=== PATIENT | female | born 1970 ===

== ENCOUNTER → 2016-07-11 17:15 | Outpatient (CLI) | payer OTHER ==
[2015-04-25 06:55] VITALS: BMI 28.1
[~2016-07-11 17:15] MED LIST: ENULOSE10 G/15 ML PO; HYDROCHLOROTH12.5 M1 PO; HYDROCHLOROTHIA25 MG PO; LEVSIN/ANASP0.125 MG PO; PROAIR HFA8.5 GM INH; TOPAMAX50 MG PO; VITAMIN B-121000 MCG PO; XANAX2 MG PO; ZOLOFT50 MG PO; ZYRTEC10 MG PO
== END | disposition home or self-care (01) ==
LOC: D.LABREF 17:15
DX: N39.0 Urinary tract infection, site not specified (principal)

== ENCOUNTER → 2016-08-13 18:06 | Outpatient (CLI) | payer OTHER ==
[2015-04-25 06:55] VITALS: BMI 28.1
[2016-08-13 18:23] LABS: AMYLASE - SERUM 36 U/L (25-115); LIPASE 131 U/L (73-393)
== END | disposition home or self-care (01) ==
LOC: D.LABREF 18:06
PROVIDERS: Family Medicine
DX: R10.11 Right upper quadrant pain (principal); R10.13 Epigastric pain; R10.12 Left upper quadrant pain

== ENCOUNTER 2016-08-22 17:06 | Observation (INO) | payer OTHER ==
[2015-04-25 06:55] VITALS: BMI 28.1
[~2016-08-22 17:06] MED LIST changes: -ENULOSE10 G/15 ML PO; -HYDROCHLOROTH12.5 M1 PO; -LEVSIN/ANASP0.125 MG PO; -TOPAMAX50 MG PO; -XANAX2 MG PO
[2016-08-22 19:08] LABS: BASOPHILS 0.2 % (0.0-2.0); EOSINOPHILS 0.6 % (0-7); HEMATOCRIT 39.8 % (36.0-48.0); HEMOGLOBIN 13.5 g/dL (12-16); IMMATURE GRANULOCYTES 0.2 % (0-5); MCHC 33.9 g/dL (31.0-37.0); MCV 91.5 fL (80.0-100.0); MEAN PLATELET VOLUME 10.2 fL (7.4-10.4); MONOCYTES 7.3 % (2-11); NEUTROPHILS 54.7 % (40-80); PLATELET COUNT 165 10x3/uL (130-400); RBC 4.35 10x6/uL (4.00-5.40); RDW 13.5 % (11.5-14.5); WBC 8.7 10x3/uL (4.8-10.8)
[2016-08-22 19:22] LABS: ALKALINE PHOSPHATASE 51 U/L (46-116); ALT (SGPT) 67 U/L (10-68); BILIRUBIN - TOTAL 0.28 mg/dL (0.2-1.3); CALC OSMOLALITY 279 mosm/kg (275-300); CALCIUM 8.8 mg/dL (8.5-10.1); CARBON DIOXIDE 25.5 mmol/L (21.0-32.0); CHLORIDE - SERUM 106 mmol/L (98-107); CREATININE - SERUM 0.8 mg/dL (0.6-1.3); GLUCOSE 98 mg/dL (74-106); PROTEIN - SERUM 6.9 g/dL (6.4-8.2); SODIUM 141 mmol/L (136-145); UREA NITROGEN 11 mg/dL (7-18); eGFR NON AFRICAN AMERICAN 82 mL/min (90-120)
--- NOTE | 2016-08-22 19:32 | NUR ---
PT RECIEVED TO ROOM 20 GA IV SITED TO RFA X 1 STICK
[2016-08-22] MEDS ORDERED: HYDROCHLOROTH12.5 M1 PO (19:58)
[2016-08-22] MEDS ORDERED: XANAX2 MG PO (20:00)
[2016-08-22] MEDS ORDERED: ENULOSE10 G/15 ML PO (20:02)
--- NOTE | 2016-08-22 20:47 | NUR ---
IV FLUIDS STARTED PER MAR, TOMAS WELL, CL IN REACH
--- NOTE | 2016-08-22 22:34 | NUR ---
XANAX GIVEN PER MAR FOR SLEEP, TOMAS WELL, CL IN REACH
[2016-08-23 04:00] VITALS: BP 126/75
[2016-08-23 05:41] LABS: BASOPHILS 0.3 % (0.0-2.0); EOSINOPHILS 1.2 % (0-7); HEMATOCRIT 40.1 % (36.0-48.0); HEMOGLOBIN 13.2 g/dL (12-16); IMMATURE GRANULOCYTES 0.5 % (0-5); MCH 30.4 pg (26.0-34.0); MCHC 32.9 g/dL (31.0-37.0); MCV 92.4 fL (80.0-100.0); MEAN PLATELET VOLUME 10.5 fL (7.4-10.4); MONOCYTES 9.1 % (2-11); NEUTROPHILS 43.9 % (40-80); PLATELET COUNT 154 10x3/uL (130-400); RBC 4.34 10x6/uL (4.00-5.40); RDW 13.6 % (11.5-14.5); WBC 7.8 10x3/uL (4.8-10.8)
[2016-08-23 06:17] LABS: ALBUMIN 3.5 g/dL (3.4-5.0); ALKALINE PHOSPHATASE 49 U/L (46-116); ALT (SGPT) 70 U/L (10-68); CALC OSMOLALITY 267 mosm/kg (275-300); CALCIUM 8.6 mg/dL (8.5-10.1); CARBON DIOXIDE 26.7 mmol/L (21.0-32.0); CHLORIDE - SERUM 100 mmol/L (98-107); CREATININE - SERUM 0.8 mg/dL (0.6-1.3); GLUCOSE 109 mg/dL (74-106); PROTEIN - SERUM 6.3 g/dL (6.4-8.2); SODIUM 134 mmol/L (136-145); UREA NITROGEN 10 mg/dL (7-18); eGFR NON AFRICAN AMERICAN 82 mL/min (90-120)
--- NOTE | 2016-08-23 07:00 | NUR ---
REPORT RECIEVED ASSUMED CARE. PATIENT IN BED WITH IV INTACT. NO COMPLAINTS AT THIS TIME. CALL LIGHT WITHIN REACH.
--- NOTE | 2016-08-23 08:00 | NUR ---
ASSESSMENT COMPLETE, VS STABLE. NO COMPLAINTS AT THIS TIME. CALL LIGHT WITHIN REACH.
[2016-08-23] MEDS ORDERED: TOPAMAX50 MG PO (08:16)
[2016-08-23] MEDS ORDERED: LEVSIN/ANASP0.125 MG PO (08:22)
[2016-08-23 10:36] VITALS: BP 118/75
--- NOTE | 2016-08-23 11:00 | NUR ---
PATIENT IV REMOVED WITH CATH TIP INTACT. NO COMPLAINTS. CALL LIGHT WITHIN REACH.
[2016-08-23 11:32] VITALS: BP 135/96
--- NOTE | 2016-08-23 11:40 | NUR ---
PATIENT RECIEVED DC INSTRUCTIONS. VERBALIZED UNDERSTANDING. FAMILY AT BEDSIDE. CALL LIGHT WITHIN REACH.
--- NOTE | 2016-09-26 09:40 | CN ---
PATIENT NAME:AMIE MEADOWS MEDICAL RECORD: [id number] : 70 LOCATION:[id number] ADMIT DATE: 08/22/16 ACCOUNT: [id number] CONSULTING PHYSICIAN: VICTOR M FERRARA MD REFERRING PHYSICIAN: BOZENA TEAGUE DO DATE OF CONSULTATION: 08/22/2016 Consultation Note Addendum HISTORY OF PRESENT ILLNESS: I was asked to see the patient due to abdominal pain as well as facial numbness. Her abdominal pain has been going on for some time now. She has undergone workup by Dr. Wills at [facility]. This has included an EGD and colonoscopy. She states that she was identified as having duodenitis and gastritis. Most of her pain is in the right upper quadrant and the right lateral chest wall. Also, some pain in the right lower quadrant. She has undergone a CT scan. I personally reviewed the CT images. The radiologist has read the report yet. I note no significant abnormality on to the CT of the abdomen and pelvis. The patient has undergone a prior cholecystectomy. This was performed by Dr. Freedman. As she already has a relationship with Dr. Freedman and states she would like to have Dr. Freedman take care of her during this hospitalization. She states that she will stay with me for now. This is Dr. Teague's patient. I asked her some questions about gluten sensitivity. We also talked about the facial numbness, which I think is unrelated to her abdominal complaints. It is mainly left perioral numbness. This may be a variant of migraine. She is also going through menopause which may be aggravating things as well. I think that some of her abdominal symptoms are related to irritable bowel syndrome. She does have bloating. She does have nausea. She does have alternating constipation, diarrhea, so I believe it is likely a variable type of irritable bowel syndrome. She is doing better on Bentyl which has been prescribed by Dr. Teague. There are some things that would point against irritable bowel syndrome. She states that her pain wakes her up at night and this would not be characteristic of irritable bowel syndrome. The pain is worse when she is stressed out. It does involve bloating. She states that she gets constipate frequently and has to take medicine to alleviate constipation. This is a surgery consultation note addendum. The patient does not appear to have an urgent or emergent general surgical issue. She has already undergone a workup by director of casework department at [facility]. She already has an appointment to be seen by the gastroenterology service at [facility]. Some additional tests are going to be ordered there. I wonder if she does not have a gluten sensitivity or some food allergies. She does state that she does have some food allergies. I note no right upper quadrant incisional hernia. For the typed portion of the consultation note, please see the chart. This includes the past medical and surgical history, allergies, current medications as well as social history. REVIEW OF SYSTEMS: As described above, otherwise negative. PHYSICAL EXAMINATION: GENERAL: The patient does not appear acutely ill. She does not appear chronically ill. CONSULT REPORT [id number] AMIE MEADOWS VITAL SIGNS: Reviewed. The entire physical examination was performed in the presence of a female nurse. PSYCHIATRIC: Anxious affect. NEUROLOGIC: Nonfocal, no lethargy. The patient answers questions appropriately, moves all extremities well. HEAD: External ears appear normal. EYES: Extraocular movements are intact. NECK: Trachea is midline. CHEST: No intercostal retractions. PULMONARY: Nonlabored, no stridor. ABDOMEN: Tenderness in the right upper quadrant and tenderness in the right lower quadrant. There is tenderness with guarding. No peritonitis to percussion, however. INTEGUMENT: No rash. BACK: No thoracic kyphosis. LYMPHATICS: No lymphangitic streaking of the exposed extremities. IMPRESSION: Abdominal pain of uncertain etiology likely multifactorial, it does appear to be a surgical issue. PLAN: I will see the patient on a p.r.n. basis. I have encouraged her to keep her appointment with the GI service at [facility]. I offered to consult one of the local director of casework department and she states that she will see the GI service at [facility] instead. TRANSINT:[id number] Voice Confirmation ID: [id number] DOCUMENT ID: [id number] VICTOR M FERRARA MD at 0940 CC: [id number] DICTATION DATE: 08/22/162132 IT APPLICATIONS MANAGER: 08/23/16 0119 DIS IN 08/23/16 [id number] [place] [address]
== END 2016-08-23 11:50 | disposition home or self-care (01) ==
LOC: D.MS 17:06 → OBSVTIME 17:08 → D.MS 08-23 11:50
PROVIDERS: ADMIT Family Medicine
DX: G43.109 Migraine with aura, not intractable, without status migrainosus (principal); R20.8 Other disturbances of skin sensation; K92.1 Melena; E11.9 Type 2 diabetes mellitus without complications; J45.909 Unspecified asthma, uncomplicated; R10.11 Right upper quadrant pain; R10.31 Right lower quadrant pain

== ENCOUNTER → 2016-12-15 19:33 | Outpatient (CLI) | payer OTHER ==
[2015-04-25 06:55] VITALS: BMI 28.1
[~2016-12-15 19:33] MED LIST changes: +ENULOSE10 G/15 ML PO; +HYDROCHLOROTH12.5 M1 PO; +LEVSIN/ANASP0.125 MG PO; +TOPAMAX50 MG PO; +XANAX2 MG PO
[2016-12-17 06:14] LABS: THYROID PEROXIDASE ABS 8 IU/mL (0-34)
[2016-12-17 10:20] LABS: ANA REFLEX - DIRECT Negative (Negative)
[2016-12-17 15:22] LABS: EBV - EARLY ANTIGEN AB IGG 13.1 U/mL (0.0-8.9); EBV VIRAL CAPSID AB IGM <36.0 U/mL (0.0-35.9)
== END | disposition home or self-care (01) ==
LOC: D.LABREF 19:33
PROVIDERS: Family Medicine
DX: E04.1 Nontoxic single thyroid nodule (principal); M25.50 Pain in unspecified joint; S00.96XA Insect bite (nonvenomous) of unspecified part of head, initial encounter

== ENCOUNTER → 2017-01-21 19:48 | Outpatient (CLI) | payer OTHER ==
[2015-04-25 06:55] VITALS: BMI 28.1
== END | disposition home or self-care (01) ==
LOC: D.LABREF 19:48
DX: K75.81 Nonalcoholic steatohepatitis (NASH) (principal)

== ENCOUNTER → 2017-02-27 12:24 | Outpatient (CLI) | payer BC ==
[2015-04-25 06:55] VITALS: BMI 28.1
== END | disposition home or self-care (01) ==
LOC: D.MRI 12:00
DX: R51 Headache (principal)

== ENCOUNTER → 2017-05-25 17:42 | Outpatient (CLI) | payer MEDICAID ==
[2015-04-25 06:55] VITALS: BMI 28.1
== END | disposition home or self-care (01) ==
LOC: D.RAD 17:42
DX: R05 Cough (principal); R04.2 Hemoptysis

== ENCOUNTER → 2017-08-24 17:37 | Outpatient (CLI) | payer MEDICAID ==
[2015-04-25 06:55] VITALS: BMI 28.1
== END | disposition home or self-care (01) ==
LOC: D.MAMMO 13:30
DX: N64.9 Disorder of breast, unspecified (principal)

== ENCOUNTER → 2018-11-11 13:55 | Outpatient (CLI) | payer BC ==
[2015-04-25 06:55] VITALS: BMI 28.1
== END | disposition home or self-care (01) ==
LOC: D.CT 11-08 15:30
PROVIDERS: ATTEND Family Medicine
DX: R10.11 Right upper quadrant pain (principal); R10.12 Left upper quadrant pain